=== PATIENT | female | born 1950 | race Two or more races ===

== ENCOUNTER 2018-11-11 10:56 | Emergency (ER) | payer MEDICARE, OTHER ==
[~2018-11-11] VITALS: Ht 149.9 cm; Wt 54.4 kg
[~2018-11-11 10:56] MED LIST: BACTRIM DS TAB1 EAC1 ORAL
--- NOTE | 2018-11-11 11:07 | NUR ---
ED Nurse Note: Pt came in from home, walks with cane due to bilateral knee pain x 3 weeks. Pain 10/10 esvin. No recent injury. Has hx of Athritis. AOx4, VSS, pt speaks Tajik. Will cont to monitor.
[2018-11-11] MEDS ORDERED: ROBAXIN-750750 MG PO (11:17)
--- NOTE | 2018-11-11 11:18 | Emergency Room Report ---
History of Present Illness General Chief Complaint: Lower Extremity Injury Source: Medical Record Present Illness HPI 68-year-old female history of osteoporosis presents with left knee pain x3 months, patient states worse with movement alleviated with rest, and orthopedic surgeon told her that she may need a left knee replacement however she has refused to get the surgery because she is concerned that no one would be able to take care of her, she has no other complaints, she states the pain is worsened with movement alleviated with rest that sharp in nature and burning Allergies: Coded Allergies: No Known Allergies (Unverified , 10/26/14) Patient History Past Medical History: see triage record Reviewed Nursing Documentation: PMH: Agreed; PSxH: Agreed Nursing Documentation-PMH Past Medical History: No History, Except For Hx Hypertension: Yes Hx Diabetes: Yes Review of Systems All Other Systems: negative except mentioned in HPI Physical Exam Vital Signs Date Time Temp Pulse Resp B/P (MAP) Pulse Ox O2 Delivery O2 Flow Rate FiO2 11/11/18 11:01 98.2 73 18 132/75 (94) 96 Room Air General Appearance: well appearing, no apparent distress Head: normocephalic, atraumatic ENT: hearing grossly normal, normal voice Neck: full range of motion, supple Respiratory: no respiratory distress, speaking full sentences Musculoskeletal: other - Left knee: Valgus varus negative, anterior posterior negative, no deformity, range of motion intact, 5 out of 5 strength flexion- extension of the knee, unremarkable exam, patient has some clicking of the left knee Neurologic: alert, other - Walks with cane Psychiatric: mood/affect normal Skin: no rash Medical Decision Making Diagnostic Impression: Primary Impression: Left knee pain Additional Impression: Osteoporosis ER Course Patient with chronic left knee pain, patient counseled to follow-up with her orthopedic surgeon, and to consider obtaining surgery, will provide patient with a prescription for Robaxin as a muscle relaxer, however it is a temporary fix On the differential includes osteoporosis, left knee pain, left knee contusion Disposition home with return precautions Last Vital Signs Date Time Temp Pulse Resp B/P (MAP) Pulse Ox O2 Delivery O2 Flow Rate FiO2 11/11/18 11:01 98.2 73 18 132/75 (94) 96 Room Air Disposition: HOME, SELF-CARE Condition: Stable Scripts Methocarbamol* (ROBAXIN-750*) 750 Mg Tablet 750 MG PO TID PRN for For Pain, #21 TAB 0 Refills Prov: Owen Small M.D. 11/11/18 Referrals: [facility] Patient Instructions: Knee Pain, [id number], Osteoporosis, [id number] Additional Instructions: The patient was provided with discharge instructions, notified to follow-up with a primary care doctor and or specialist in the next 24-48 hours, and to return to the ED if they have worsening of their symptoms. Please note that this report is being documented using Live[employer] technology. This can lead to erroneous entry secondary to incorrect interpretation by the dictating instrument. Owen Small M.D. Nov 11, 2018 11:18
[2018-11-11 11:23] VITALS: BP 132/75
--- NOTE | 2018-11-11 11:23 | NUR ---
ER DISCHARGE NOTE: Patient is cleared to be discharged per ERMD, pt is aox4, on room air, with stable vital signs. pt was given dc and prescription instructions, pt was able to verbalize understanding, pt id band removed. pt is able to ambulate with steady gait. pt took all belongings.
== END 2018-11-11 11:23 | disposition home or self-care (01) ==
LOC: EMR 11:06
DX: M25.562 Pain in left knee (principal); M81.0 Age-related osteoporosis without current pathological fracture; E11.9 Type 2 diabetes mellitus without complications; I10 Essential (primary) hypertension
CPT/HCPCS: 99282